=== PATIENT | female | born 1940 | race Caucasian/White ===

== ENCOUNTER 2022-06-24 18:23 | Observation (INO) ==
[2022-06-24] MEDS ORDERED: Lidocaine 2% PF 5 ML VIAL ONE (18:57)
[2022-06-24] MEDS ORDERED: Propofol 10 MG/ML 20 ML BTL ONE ×3 (18:57→22:49)
[2022-06-24] MEDS ORDERED: Lidocaine 1% MPF 5 ML VIAL ONE (19:10)
[2022-06-24 19:35] LABS: Hematocrit 41 % (35-47); Hemoglobin 13.6 g/dL (12.0-16.0); Mean Corpuscular HGB Conc 33 g/dL (31-36); Mean Corpuscular Hemoglobin 28 pg (27-31); Mean Corpuscular Volume 86 fL (80-97); Mean Platelet Volume 9.1 fL (7.4-10.4); Platelet Count 233 10^3/uL (150-450); Red Blood Count 4.83 10^6 /uL (3.70-4.87); Red Cell Distribution Width 16 % (10-15); White Blood Count 15.4 10^3/uL (3.5-10.8)
[2022-06-24] MEDS ORDERED: Bupivacaine 0.5% SDV PF 30ML VIAL ONE (19:46)
[2022-06-24] MEDS ORDERED: Ondansetron 4 mg VIAL 2 MG/ML 2 ml VIAL IV PRN (20:19)
[2022-06-24] MEDS ORDERED: Dextrose 50% Syringe 50 ml 25 GM/50 ML SYRINGE IV PUSH PRN (20:40)
[2022-06-24 20:43] LABS: Albumin 3.8 g/dL (3.2-5.2); Albumin/Globulin Ratio 1.2 (1-3); C Reactive Protein 138.88 mg/L (<8.01); Calcium 9.2 mg/dL (8.6-10.3); Creatinine, Serum 0.71 mg/dL (0.51-0.95); Globulin 3.3 g/dL (2-4); Potassium 3.8 mmol/L (3.5-5.0); Total Bilirubin 0.8 mg/dL (0.2-1.0); Total Protein 7.1 g/dL (6.4-8.9); eGFR CKD-EPI 85.4 (>60)
[2022-06-24] MEDS ORDERED: Magnesium Hydroxide LIQ 30 ML UDC PO PRN (20:44)
[2022-06-24] MEDS ORDERED: Lactulose 30 ml UDC PO PRN (20:44)
[2022-06-24 20:59] LABS: ABS Basophils 0.1 10^3/ul (0-0.2); ABS Eosinophils 0.2 10^3/ul (0-0.6); ABS Lymphocytes 2.2 10^3/ul (1.0-4.8); ABS Monocytes 1.9 10^3/ul (0-0.8); Eosinophil % 1.1 %
[2022-06-24] MEDS ORDERED: Lactated Ringers 1000 ml BAG 1,000 ML IV SCH (21:00)
[2022-06-24] MEDS ORDERED: Vancomycin per Pharmacy 1 EA NOTE FOLLOW UP PRN (21:30)
[2022-06-24] MEDS ORDERED: Vancomycin 1,750 MG in NS 0.9% 500 ml BAG 500 ML IVPB ONE (22:00)
[2022-06-24] MEDS ORDERED: cefTRIAXone 2 gm/50 mL D5W 2 GM/50 ML BAG IV SCH (22:00)
[2022-06-24] MEDS ORDERED: Phenylephrine 40 mcg/mL 10mL (400mcg) SYRINGE ONE (22:32)
[2022-06-25] MEDS ORDERED: Polyethylene Glycol 3350 17 GM PACKET PO PRN (00:01)
[2022-06-25] MEDS: Magnesium Hydroxide LIQ 30 ML UDC PO SCH ×4 (01:44→20:24)
[2022-06-25 05:37] LABS: Hematocrit 37 % (35-47); Mean Platelet Volume 8.9 fL (7.4-10.4); Platelet Count 200 10^3/uL (150-450)
[2022-06-25 06:15] LABS: Albumin 3.3 g/dL (3.2-5.2); Albumin/Globulin Ratio 1.3 (1-3); Calcium 8.6 mg/dL (8.6-10.3); Creatinine, Serum 0.67 mg/dL (0.51-0.95); Globulin 2.6 g/dL (2-4); Potassium 3.6 mmol/L (3.5-5.0); Total Bilirubin 0.6 mg/dL (0.2-1.0); Total Protein 5.9 g/dL (6.4-8.9); eGFR CKD-EPI 87.8 (>60)
[2022-06-25] MEDS: Vitamin THERAPEUTIC TAB PO SCH (08:37)
[2022-06-25] MEDS: Insulin GLARGINE 100 un/ml 10 ml VIAL SUBCUT SCH (08:38)
[2022-06-25 09:08] LABS: Hematocrit 38 % (35-47); Hemoglobin 12.6 g/dL (12.0-16.0); Mean Corpuscular HGB Conc 33 g/dL (31-36); Mean Corpuscular Hemoglobin 28 pg (27-31); Mean Corpuscular Volume 86 fL (80-97); Platelet Count 220 10^3/uL (150-450); Red Blood Count 4.44 10^6 /uL (3.70-4.87); Red Cell Distribution Width 15 % (10-15); White Blood Count 13.5 10^3/uL (3.5-10.8)
[2022-06-25 09:14] LABS: ABS Basophils 0.1 10^3/ul (0-0.2); ABS Eosinophils 0.2 10^3/ul (0-0.6); ABS Lymphocytes 1.5 10^3/ul (1.0-4.8); ABS Monocytes 1.7 10^3/ul (0-0.8); Eosinophil % 1.5 %; Lymphocyte % 10.9 %; Nucleated Red Blood Cells % 0.1
[2022-06-25] MEDS: Vancomycin 1000 MG in NS 0.9% 250 ML IVPB SCH (15:02)
[2022-06-25] MEDS ORDERED: cefTRIAXone 2 GM ADDV.VIAL 2 GM in NS 0.9% 100 ml BAG 100 ML IV SCH (22:00)
[2022-06-26] MEDS: Vancomycin 1000 MG in NS 0.9% 250 ML IVPB SCH ×2 (02:01→14:10)
[2022-06-26 05:40] LABS: Hematocrit 37 % (35-47); Hemoglobin 12.2 g/dL (12.0-16.0); Platelet Count 214 10^3/uL (150-450)
[2022-06-26] MEDS: Insulin GLARGINE 100 un/ml 10 ml VIAL SUBCUT SCH (08:30)
[2022-06-26] MEDS: Magnesium Hydroxide LIQ 30 ML UDC PO SCH (08:30)
[2022-06-26] MEDS: Vitamin THERAPEUTIC TAB PO SCH (08:30)
[2022-06-26 11:23] VITALS: BP 125/66
[2022-06-26] MEDS ORDERED: Vancomycin Trough Check NOTE FOLLOW UP ONE (13:30)
[2022-06-26] MEDS ORDERED: Nystatin TOP POWDER 15 GM BTL TOPICAL SCH (15:00)
[2022-06-26 15:22] LABS: Creatinine, Serum 0.63 mg/dL (0.51-0.95); Vancomycin Trough 13.4 mcg/mL; eGFR CKD-EPI 89.1 (>60)
== END 2022-06-26 20:12 | disposition home or self-care (01) ==
LOC: ED 18:23 → SSU 18:23 → OR 20:11 → SSU 20:11 → UNDODISOB 06-26 20:11
PROVIDERS: ADMIT Orthopaedic Surgery; ATTEND Orthopaedic Surgery